=== PATIENT | male | born 1945 | race Caucasian/White ===

== ENCOUNTER 2017-03-16 22:30 | Inpatient (IN) | payer OTHER ==
[~2017-03-16] VITALS: Ht 182.9 cm; Wt 97.0 kg
[2017-03-16 23:08] LABS: EOSINOPHIL (%) 1.2 % (0-5); EOSINOPHIL COUNT 0.1 K/uL (0-0.3); HEMATOCRIT 33.2 % (38.0-50.0); IMMATURE GRANULOCYTE COUNT 0.1 K/uL; INSTRUMENT ABS NEUTROPHIL CT 6.9 K/uL; LYMPHOCYTE COUNT 1.1 K/uL (1.0-2.8); MCH 28.6 PG (29.0-34.0); MCHC 31.6 G/DL (30.0-36.0); MCV 90.5 FL (86-99); MONOCYTE (%) 7.7 % (3-12); MONOCYTE COUNT 0.7 K/uL (0-0.8); NEUTROPHIL (%) 77.6 % (45-76); NEUTROPHIL COUNT 6.9 K/uL (1.8-6.4); PLATELET COUNT 203 K/uL (156-360); RBC DIS.WIDTH-CV 16.7 % (11.8-14.6); RBC DIS.WIDTH-SD 55.9 % (39-53); RED BLOOD COUNT 3.67 M/uL (4.00-5.50); WHITE BLOOD COUNT 8.8 K/uL (4.1-10.2)
[2017-03-16 23:17] LABS: CHLORIDE 97 mEq/L (99-109); POTASSIUM 4.3 mEq/L (3.7-5.4); SODIUM 134 mEq/L (136-147)
[2017-03-16 23:18] LABS: MAGNESIUM 1.9 mg/dL (1.3-2.7)
[2017-03-16 23:20] LABS: GLUCOSE 244 mg/dL (70-99)
[2017-03-16 23:21] LABS: ANION GAP 15 MEQ/L (2-14)
[2017-03-16 23:22] LABS: TOTAL BILIRUBIN 0.4 mg/dL (0.0-1.0)
[2017-03-16 23:23] LABS: ALKALINE PHOSPHATASE 75 IU/L (3-129)
[2017-03-16 23:24] LABS: GFR ESTIMATE (CALCULATED) 53 mL/min/
[2017-03-16 23:25] LABS: UREA NITROGEN (BUN) 27 mg/dL (9-23)
[2017-03-16 23:30] LABS: TROP-I INTERPRETATION POSITIVE
[2017-03-16 23:34] LABS: TROPONIN-I 0.63 ng/mL (0.0-0.30)
[2017-03-16 23:43] LABS: INTER. NORMALIZED RATIO 1.4; PROTHROMBIN TIME 15.1 SEC (10.2-12.9)
[2017-03-16 23:45] LABS: PTT 31.6 SEC (25-37)
[2017-03-17] VITALS (25 sets, daily range): BP systolic 0–143; BP diastolic 0–92
[2017-03-17 03:08] LABS: METH RESISTANT S AUREUS PCR NEGATIVE (NEGATIVE)
[2017-03-17 03:09] LABS: PROBE CHECK PASS; SPECIMEN PROCESSING CONTROL PASS
[2017-03-17 06:04] LABS: BASE EXCESS 5.5 mEq/L (-3 to +3); BICARBONATE 28.9 mEq/L (22-26); CARBOXY HGB 1.9 % (0-5); METHEMOGLOBIN 1.3 % (0-1.5); PCO2 37 mm Hg (35-45); PO2 72 mm Hg (80-100)
[2017-03-17 06:06] LABS: COMMENTS - BLOOD GASES A+C+; SITE LR
[2017-03-17 06:07] LABS: DEVICE MASKVENT; FI02 40 %; MODE SPONT; PEEP 5 CM/H20; PRES. SUPPORT 12 CM/H2O; TOTAL RESP RATE 30 resp/min
[2017-03-17 06:29] LABS: TROP-I INTERPRETATION POSITIVE; TROPONIN-I 4.19 ng/mL (0.0-0.30)
[2017-03-17 11:02] LABS: TROP-I INTERPRETATION POSITIVE; TROPONIN-I 6.57 ng/mL (0.0-0.30)
[2017-03-17 17:59] LABS: TROP-I INTERPRETATION POSITIVE; TROPONIN-I 5.82 ng/mL (0.0-0.30)
[2017-03-18] VITALS (24 sets, daily range): BP systolic 84–126; BP diastolic 56–85
[2017-03-18 05:53] LABS: EOSINOPHIL COUNT 0.1 K/uL (0-0.3); HEMATOCRIT 31.1 % (38.0-50.0); IMMATURE GRANULOCYTE (%) 0.8 % (0.0-0.7); IMMATURE GRANULOCYTE COUNT 0.1 K/uL; INSTRUMENT ABS NEUTROPHIL CT 5.3 K/uL; LYMPHOCYTE COUNT 1.1 K/uL (1.0-2.8); MCH 28.8 PG (29.0-34.0); MCHC 32.2 G/DL (30.0-36.0); MCV 89.6 FL (86-99); MONOCYTE (%) 10.1 % (3-12); MONOCYTE COUNT 0.7 K/uL (0-0.8); NEUTROPHIL (%) 73.2 % (45-76); NEUTROPHIL COUNT 5.3 K/uL (1.8-6.4); PLATELET COUNT 185 K/uL (156-360); RBC DIS.WIDTH-CV 17.1 % (11.8-14.6); RBC DIS.WIDTH-SD 55.4 % (39-53); RED BLOOD COUNT 3.47 M/uL (4.00-5.50); WHITE BLOOD COUNT 7.3 K/uL (4.1-10.2)
[2017-03-18 06:26] LABS: ALKALINE PHOSPHATASE 56 IU/L (3-129); ANION GAP 12 MEQ/L (2-14); CHLORIDE 97 MEQ/L (99-109); GFR ESTIMATE (CALCULATED) > 59 mL/min/; GLUCOSE 143 mg/dL (70-99); MAGNESIUM 1.9 mg/dl (1.3-2.7); POTASSIUM 4.4 MEQ/L (3.7-5.4); SAMPLE HEMOLYSIS CHECK 0; SAMPLE ICTERIC CHECK 0; SAMPLE LIPEMIA CHECK 0; SODIUM 137 MEQ/L (136-147); TOTAL BILIRUBIN 0.5 MG/DL (0.0-1.0); UREA NITROGEN (BUN) 36 mg/dL (9-23)
[2017-03-18] MEDS ORDERED: CETIRIZINE HCL10 M2 PO (12:02)
[2017-03-18] MEDS ORDERED: DOXYCYCLINE HY100 MG PO (12:03)
[2017-03-18] MEDS ORDERED: ASPIR-LOW81 MG PO (12:05)
[2017-03-18] MEDS ORDERED: XARELTO20 MG PO (12:05)
[2017-03-18] MEDS ORDERED: DIAZEPAM5 MG PO (12:06)
[2017-03-18] MEDS ORDERED: DIVALPROEX SOD500 MG PO (12:07)
[2017-03-18] MEDS ORDERED: QUETIAPINE FUMA50 MG PO (12:08)
[2017-03-18] MEDS ORDERED: GABAPENTIN400 MG PO (12:08)
[2017-03-18] MEDS ORDERED: PRAZOSIN HCL5 MG PO (12:09)
[2017-03-18] MEDS ORDERED: METOPROLOL TART25 MG PO (12:09)
[2017-03-18] MEDS ORDERED: ROSUVASTATIN CA40 MG PO (12:10)
[2017-03-18] MEDS ORDERED: NORVASC5 MG PO (12:10)
[2017-03-18] MEDS ORDERED: FUROSEMIDE40 MG PO (12:11)
[2017-03-18] MEDS ORDERED: LIDODERM 5% P1 PATCH TD (12:12)
[2017-03-18] MEDS ORDERED: SPIRONOLACTONE25 MG PO (12:12)
[2017-03-18] MEDS ORDERED: LOSARTAN POTAS100 MG PO (12:12)
[2017-03-18] MEDS ORDERED: OMEPRAZOLE20 MG PO (12:13)
[2017-03-18] MEDS ORDERED: SANTYL30 GM TP (12:13)
[2017-03-18] MEDS ORDERED: GLIPIZIDE5 MG PO (12:14)
[2017-03-18] MEDS ORDERED: VENTOLIN HFA18 GM IH (12:14)
[2017-03-18] MEDS ORDERED: MAGNESIUM400 M1 PO (12:15)
[2017-03-18] MEDS ORDERED: TRAMADOL HCL50 MG PO (12:17)
[2017-03-18] MEDS ORDERED: LASIX40 MG PO (12:52)
[2017-03-18 16:45] LABS: POINT-OF-CARE METER ID UU13113748
[2017-03-19] VITALS (21 sets, daily range): BP systolic 89–117; BP diastolic 52–82
[2017-03-19 03:36] LABS: HEMATOCRIT 29.4 % (38.0-50.0); MCH 28.7 PG (29.0-34.0); PLATELET COUNT 173 K/uL (156-360); RBC DIS.WIDTH-CV 16.5 % (11.8-14.6); RBC DIS.WIDTH-SD 52.7 % (39-53); RED BLOOD COUNT 3.38 M/uL (4.00-5.50); WHITE BLOOD COUNT 8.1 K/uL (4.1-10.2)
[2017-03-19 08:11] LABS: ALKALINE PHOSPHATASE 48 IU/L (3-129); ANION GAP 8 MEQ/L (2-14); CHLORIDE 95 MEQ/L (99-109); GFR ESTIMATE (CALCULATED) > 59 mL/min/; GLUCOSE 139 mg/dL (70-99); MAGNESIUM 1.9 mg/dl (1.3-2.7); POTASSIUM 3.9 MEQ/L (3.7-5.4); SAMPLE HEMOLYSIS CHECK 0; SAMPLE ICTERIC CHECK 0; SAMPLE LIPEMIA CHECK 0; SODIUM 133 MEQ/L (136-147); TOTAL BILIRUBIN 0.5 MG/DL (0.0-1.0); UREA NITROGEN (BUN) 39 mg/dL (9-23)
[2017-03-19 08:39] LABS: POINT-OF-CARE METER ID UU13113748
[2017-03-19 13:17] LABS: POINT-OF-CARE METER ID UU14174217
[2017-03-19 16:57] LABS: POINT-OF-CARE METER ID UU14174217
[2017-03-19 22:40] LABS: POINT-OF-CARE METER ID UU14174217; POINT-OF-CARE USER ID PHATLC
[2017-03-20] VITALS (18 sets, daily range): BP systolic 90–125; BP diastolic 58–80
[2017-03-20 04:53] LABS: EOSINOPHIL (%) 4.1 % (0-5); EOSINOPHIL COUNT 0.3 K/uL (0-0.3); HEMATOCRIT 31.2 % (38.0-50.0); IMMATURE GRANULOCYTE COUNT 0.1 K/uL; INSTRUMENT ABS NEUTROPHIL CT 4.5 K/uL; LYMPHOCYTE COUNT 1.1 K/uL (1.0-2.8); MCH 28.3 PG (29.0-34.0); MCHC 32.7 G/DL (30.0-36.0); MCV 86.7 FL (86-99); MEAN PLAT.VOLUME 11.3 uM^3 (9.0-12.4); MONOCYTE (%) 11.8 % (3-12); MONOCYTE COUNT 0.8 K/uL (0-0.8); NEUTROPHIL (%) 65.7 % (45-76); NEUTROPHIL COUNT 4.5 K/uL (1.8-6.4); NRBC (%) 0.3 /100 WBC (0-0); PLATELET COUNT 203 K/uL (156-360); RBC DIS.WIDTH-CV 16.2 % (11.8-14.6); RBC DIS.WIDTH-SD 51.2 % (39-53); WHITE BLOOD COUNT 6.8 K/uL (4.1-10.2)
[2017-03-20 05:08] LABS: CHLORIDE 91 mEq/L (99-109); POTASSIUM 3.6 mEq/L (3.7-5.4); SODIUM 133 mEq/L (136-147)
[2017-03-20 05:10] LABS: GLUCOSE 115 mg/dL (70-99)
[2017-03-20 05:12] LABS: ANION GAP 11 MEQ/L (2-14)
[2017-03-20 05:14] LABS: GFR ESTIMATE (CALCULATED) > 59 mL/min/
[2017-03-20 05:15] LABS: UREA NITROGEN (BUN) 31 mg/dL (9-23)
[2017-03-20 05:26] LABS: MAGNESIUM 2.3 mg/dL (1.3-2.7)
[2017-03-20 08:01] LABS: POINT-OF-CARE METER ID UU14174217
[2017-03-20 11:33] LABS: POINT-OF-CARE METER ID UU14174217
[2017-03-20 16:54] LABS: POINT-OF-CARE METER ID UU14174217
[2017-03-20 22:10] LABS: POINT-OF-CARE METER ID UU14174217; POINT-OF-CARE USER ID PHATLC
[2017-03-21] VITALS (12 sets, daily range): BP systolic 89–119; BP diastolic 53–74
[2017-03-21 05:40] LABS: BASOPHIL COUNT 0.1 K/uL (0-0.1); EOSINOPHIL (%) 4.6 % (0-5); EOSINOPHIL COUNT 0.3 K/uL (0-0.3); HEMATOCRIT 33.8 % (38.0-50.0); IMMATURE GRANULOCYTE (%) 1.3 % (0.0-0.7); IMMATURE GRANULOCYTE COUNT 0.1 K/uL; LYMPHOCYTE COUNT 1.4 K/uL (1.0-2.8); MCH 28.4 PG (29.0-34.0); MCHC 33.1 G/DL (30.0-36.0); MCV 85.8 FL (86-99); MEAN PLAT.VOLUME 11.1 uM^3 (9.0-12.4); MONOCYTE (%) 12.3 % (3-12); MONOCYTE COUNT 0.8 K/uL (0-0.8); NEUTROPHIL (%) 60.5 % (45-76); PLATELET COUNT 239 K/uL (156-360); RBC DIS.WIDTH-CV 15.9 % (11.8-14.6); RBC DIS.WIDTH-SD 50.1 % (39-53); RED BLOOD COUNT 3.94 M/uL (4.00-5.50); WHITE BLOOD COUNT 6.7 K/uL (4.1-10.2)
[2017-03-21 06:04] LABS: ANION GAP 12 MEQ/L (2-14); CHLORIDE 87 MEQ/L (99-109); GFR ESTIMATE (CALCULATED) > 59 mL/min/; GLUCOSE 105 mg/dL (70-99); MAGNESIUM 2.1 mg/dl (1.3-2.7); POTASSIUM 3.8 MEQ/L (3.7-5.4); SAMPLE HEMOLYSIS CHECK 0; SAMPLE ICTERIC CHECK 0; SAMPLE LIPEMIA CHECK 0; SODIUM 133 MEQ/L (136-147); UREA NITROGEN (BUN) 33 mg/dL (9-23)
[2017-03-21 08:48] LABS: POINT-OF-CARE METER ID UU13113731
[2017-03-21 12:30] LABS: POINT-OF-CARE METER ID UU13113731
[2017-03-21 17:26] LABS: POINT-OF-CARE METER ID UU13113731
[2017-03-21 21:31] LABS: POINT-OF-CARE METER ID UU13113781
[2017-03-22 04:33] VITALS: BP 104/59
[2017-03-22 06:13] LABS: BASOPHIL COUNT 0.1 K/uL (0-0.1); EOSINOPHIL COUNT 0.3 K/uL (0-0.3); HEMATOCRIT 35.5 % (38.0-50.0); IMMATURE GRANULOCYTE (%) 1.5 % (0.0-0.7); IMMATURE GRANULOCYTE COUNT 0.1 K/uL; INSTRUMENT ABS NEUTROPHIL CT 3.8 K/uL; LYMPHOCYTE COUNT 1.5 K/uL (1.0-2.8); MCH 28.2 PG (29.0-34.0); MCHC 33.2 G/DL (30.0-36.0); MCV 84.9 FL (86-99); MEAN PLAT.VOLUME 11.1 uM^3 (9.0-12.4); MONOCYTE (%) 12.4 % (3-12); MONOCYTE COUNT 0.8 K/uL (0-0.8); NEUTROPHIL (%) 57.4 % (45-76); NEUTROPHIL COUNT 3.8 K/uL (1.8-6.4); PLATELET COUNT 249 K/uL (156-360); RBC DIS.WIDTH-CV 15.7 % (11.8-14.6); RBC DIS.WIDTH-SD 48.2 % (39-53); RED BLOOD COUNT 4.18 M/uL (4.00-5.50); WHITE BLOOD COUNT 6.6 K/uL (4.1-10.2)
[2017-03-22 06:34] LABS: ANION GAP 12 MEQ/L (2-14); CHLORIDE 87 MEQ/L (99-109); GFR ESTIMATE (CALCULATED) > 59 mL/min/; GLUCOSE 97 mg/dL (70-99); MAGNESIUM 1.9 mg/dl (1.3-2.7); POTASSIUM 3.9 MEQ/L (3.7-5.4); SAMPLE HEMOLYSIS CHECK 0; SAMPLE ICTERIC CHECK 0; SAMPLE LIPEMIA CHECK 0; SODIUM 131 MEQ/L (136-147); UREA NITROGEN (BUN) 38 mg/dL (9-23)
[2017-03-22 07:38] LABS: POINT-OF-CARE METER ID UU13113781
[2017-03-22 08:00] VITALS: BP 97/57
[2017-03-22 12:37] VITALS: BP 90/51
[2017-03-22] MEDS ORDERED: ENALAPRIL MALEAT5 MG PO (14:07)
[2017-03-22] MEDS ORDERED: METOPROLOL TART75 MG PO (14:07)
[2017-03-22] MEDS ORDERED: ASPIR-LOW81 MG PO (14:08)
[2017-03-22] MEDS ORDERED: GABAPENTIN300 MG PO (14:08)
== END 2017-03-22 15:54 | disposition home or self-care (01) | DRG 280 ==
LOC: EME → EDBD 22:30 → EME 22:30 → ENRESERV 03-17 01:05 → 4EAST 03-17 01:05 → EDOF 03-17 01:05 → 4WEST 03-17 01:05 → ENRESERV 03-17 01:07 → 4WEST 03-17 01:33 → ENRESERV 03-21 09:52 → 4EAST 03-21 17:12
PROVIDERS: Emergency Medicine; Internal Medicine; Internal Medicine Critical Care Medicine; Internal Medicine Nephrology; Specialist
PROC: 5A09357 Assistance with Respiratory Ventilation, Less than 24 Consecutive Hours, Continuous Positive Airway Pressure (ICD-10-PCS; principal; 2017-03-17)
DX: I21.4 Non-ST elevation (NSTEMI) myocardial infarction (principal); J96.01 Acute respiratory failure with hypoxia; J44.1 Chronic obstructive pulmonary disease with (acute) exacerbation; I48.91 Unspecified atrial fibrillation; I95.9 Hypotension, unspecified; I25.10 Atherosclerotic heart disease of native coronary artery without angina pectoris; I44.7 Left bundle-branch block, unspecified; I50.23 Acute on chronic systolic (congestive) heart failure; I11.0 Hypertensive heart disease with heart failure; E78.5 Hyperlipidemia, unspecified; E11.621 Type 2 diabetes mellitus with foot ulcer; F17.210 Nicotine dependence, cigarettes, uncomplicated; L97.929 Non-pressure chronic ulcer of unspecified part of left lower leg with unspecified severity; E83.42 Hypomagnesemia; I73.9 Peripheral vascular disease, unspecified; E11.9 Type 2 diabetes mellitus without complications; R91.8 Other nonspecific abnormal finding of lung field; F43.10 Post-traumatic stress disorder, unspecified; E78.00 Pure hypercholesterolemia, unspecified; K21.9 Gastro-esophageal reflux disease without esophagitis; F32.9 Major depressive disorder, single episode, unspecified; I42.9 Cardiomyopathy, unspecified; R79.89 Other specified abnormal findings of blood chemistry; Z82.49 Family history of ischemic heart disease and other diseases of the circulatory system; I25.2 Old myocardial infarction; Z95.810 Presence of automatic (implantable) cardiac defibrillator; Z80.1 Family history of malignant neoplasm of trachea, bronchus and lung; Z79.01 Long term (current) use of anticoagulants; Z88.6 Allergy status to analgesic agent
CPT/HCPCS: 36600; 71010; 80048; 80053; 82803; 82948; 83735; 83880; 84100; 84484; 85025; 85027; 85610; 85730; 87641; 93005; 93306; 94002; 94003; 94640; 94640 76; 94760; 94799; 99202; 99281; 99285; J1815; J1940; J3475; J7050; J7644

== ENCOUNTER 2017-03-30 20:41 | Inpatient (IN) | payer OTHER ==
[~2017-03-30] VITALS: Ht 185.4 cm; Wt 100.4 kg
[~2017-03-30 20:41] MED LIST: ASPIR-LOW81 MG PO; CETIRIZINE HCL10 M2 PO; DIAZEPAM5 MG PO; DIVALPROEX SOD500 MG PO; DOXYCYCLINE HY100 MG PO; ENALAPRIL MALEAT5 MG PO; FUROSEMIDE40 MG PO; GABAPENTIN300 MG PO; GABAPENTIN400 MG PO; GLIPIZIDE5 MG PO; LASIX40 MG PO; LIDODERM 5% P1 PATCH TD; LOSARTAN POTAS100 MG PO; MAGNESIUM400 M1 PO; METOPROLOL TART25 MG PO; METOPROLOL TART75 MG PO; NORVASC5 MG PO; OMEPRAZOLE20 MG PO; PRAZOSIN HCL5 MG PO; QUETIAPINE FUMA50 MG PO; ROSUVASTATIN CA40 MG PO; SANTYL30 GM TP; SPIRONOLACTONE25 MG PO; TRAMADOL HCL50 MG PO; VENTOLIN HFA18 GM IH; XARELTO20 MG PO
[2017-03-30 20:56] LABS: HEMATOCRIT 31.8 % (38.0-50.0); MCH 28.5 PG (29.0-34.0); MCHC 32.4 G/DL (30.0-36.0); MCV 87.8 FL (86-99); MEAN PLAT.VOLUME 11.8 uM^3 (9.0-12.4); PLATELET COUNT 189 K/uL (156-360); RBC DIS.WIDTH-SD 51.8 % (39-53); RED BLOOD COUNT 3.62 M/uL (4.00-5.50); WHITE BLOOD COUNT 10.5 K/uL (4.1-10.2)
[2017-03-30 21:08] LABS: CHLORIDE 94 mEq/L (99-109); POTASSIUM 5.8 mEq/L (3.7-5.4)
[2017-03-30 21:09] LABS: SODIUM 131 mEq/L (136-147)
[2017-03-30 21:10] LABS: GLUCOSE 220 mg/dL (70-99)
[2017-03-30 21:12] LABS: ANION GAP 17 MEQ/L (2-14)
[2017-03-30 21:14] LABS: GFR ESTIMATE (CALCULATED) 43 mL/min/
[2017-03-30 21:15] LABS: UREA NITROGEN (BUN) 43 mg/dL (9-23)
[2017-03-30 21:18] LABS: TROP-I INTERPRETATION POSITIVE
[2017-03-30 21:25] LABS: TROPONIN-I 5.86 ng/mL (0.0-0.30)
[2017-03-30 21:37] LABS: INTER. NORMALIZED RATIO 1.5; PROTHROMBIN TIME 16.4 SEC (10.2-12.9)
[2017-03-30 22:00] LABS: PTT 30.7 SEC (25-37)
[2017-03-31] VITALS (22 sets, daily range): BP systolic 88–123; BP diastolic 56–85
[2017-03-31 04:10] LABS: METH RESISTANT S AUREUS PCR NEGATIVE (NEGATIVE)
[2017-03-31 04:14] LABS: PROBE CHECK PASS; SPECIMEN PROCESSING CONTROL PASS
[2017-03-31 05:24] LABS: INTER. NORMALIZED RATIO 1.4; PROTHROMBIN TIME 15.6 SEC (10.2-12.9)
[2017-03-31 05:27] LABS: PTT 44.5 SEC (25-37)
[2017-03-31 05:49] LABS: TROP-I INTERPRETATION POSITIVE; TROPONIN-I 10.39 ng/mL (0.0-0.30)
[2017-03-31 08:42] LABS: POINT-OF-CARE METER ID UU13113803
[2017-03-31 12:13] LABS: POINT-OF-CARE METER ID UU13113731; POINT-OF-CARE USER ID 606021424
[2017-03-31 13:25] LABS: TROP-I INTERPRETATION POSITIVE; TROPONIN-I 10.49 ng/mL (0.0-0.30)
[2017-03-31 15:31] LABS: POINT-OF-CARE METER ID UU13113731; POINT-OF-CARE USER ID 606021424
[2017-03-31 19:38] LABS: ANION GAP 12 MEQ/L (2-14); CHLORIDE 94 MEQ/L (99-109); GFR ESTIMATE (CALCULATED) 53 mL/min/; GLUCOSE 148 mg/dL (70-99); SAMPLE HEMOLYSIS CHECK 0; SAMPLE ICTERIC CHECK 0; SAMPLE LIPEMIA CHECK 0; SODIUM 131 MEQ/L (136-147); UREA NITROGEN (BUN) 44 mg/dL (9-23)
[2017-03-31 19:43] LABS: TROP-I INTERPRETATION POSITIVE; TROPONIN-I 10.44 ng/mL (0.0-0.30)
[2017-03-31 19:59] LABS: POTASSIUM 4.3 MEQ/L (3.7-5.4)
[2017-03-31 22:21] LABS: POINT-OF-CARE METER ID UU13113731
[2017-04-01] VITALS (10 sets, daily range): BP systolic 81–108; BP diastolic 51–70
[2017-04-01 05:30] LABS: BASE EXCESS 4.1 mEq/L (-3 to +3); BICARBONATE 28.5 mEq/L (22-26); CARBOXY HGB 1.2 % (0-5); COMMENTS - BLOOD GASES A+C+; DEVICE HI FLOW NC; METHEMOGLOBIN 1.5 % (0-1.5); O2 FLOW 10 L/MIN; PCO2 41 mm Hg (35-45); PO2 173 mm Hg (80-100); SITE RR; pH 7.45 (7.35-7.45)
[2017-04-01 07:57] LABS: ANION GAP 9 MEQ/L (2-14); CHLORIDE 92 MEQ/L (99-109); GFR ESTIMATE (CALCULATED) 58 mL/min/; GLUCOSE 130 mg/dL (70-99); POTASSIUM 4.3 MEQ/L (3.7-5.4); SAMPLE HEMOLYSIS CHECK 0; SAMPLE ICTERIC CHECK 0; SAMPLE LIPEMIA CHECK 0; SODIUM 130 MEQ/L (136-147); UREA NITROGEN (BUN) 40 mg/dL (9-23)
[2017-04-01 08:00] LABS: TROP-I INTERPRETATION POSITIVE; TROPONIN-I 8.42 ng/mL (0.0-0.30)
[2017-04-01] MEDS ORDERED: VASOTEC5 MG PO (09:25)
[2017-04-01] MEDS ORDERED: LO-DOSE ASPIRIN81 M1 PO (09:25)
[2017-04-01] MEDS ORDERED: GABAPENTIN300 MG PO (09:25)
[2017-04-01] MEDS ORDERED: CETIRIZINE HCL10 M2 PO (09:25)
[2017-04-01] MEDS ORDERED: DIAZEPAM5 MG PO (09:26)
[2017-04-01] MEDS ORDERED: XARELTO20 MG PO (09:26)
[2017-04-01] MEDS ORDERED: SEROQUEL50 MG PO (09:27)
[2017-04-01] MEDS ORDERED: MINIPRESS5 MG PO (09:27)
[2017-04-01] MEDS ORDERED: CRESTOR40 MG PO (09:27)
[2017-04-01] MEDS ORDERED: DEPAKOTE500 MG PO (09:27)
[2017-04-01] MEDS ORDERED: LIDODERM 5% P1 PATCH TD (09:28)
[2017-04-01] MEDS ORDERED: FUROSEMIDE40 MG PO (09:28)
[2017-04-01] MEDS ORDERED: SPIRONOLACTONE25 MG PO (09:28)
[2017-04-01] MEDS ORDERED: GLIPIZIDE5 MG PO (09:29)
[2017-04-01] MEDS ORDERED: SANTYL30 GM TP (09:29)
[2017-04-01] MEDS ORDERED: PRILOSEC20 MG PO (09:29)
[2017-04-01] MEDS ORDERED: VENTOLIN HFA18 GM IH (09:30)
[2017-04-01] MEDS ORDERED: LASIX40 MG PO (09:31)
[2017-04-01] MEDS ORDERED: MAGNESIUM OXID400 MG PO (09:31)
[2017-04-01 11:47] LABS: POINT-OF-CARE METER ID UU13113731
[2017-04-01 13:26] LABS: BASOPHIL COUNT 0.1 K/uL (0-0.1); EOSINOPHIL (%) 1.7 % (0-5); EOSINOPHIL COUNT 0.1 K/uL (0-0.3); HEMATOCRIT 29.4 % (38.0-50.0); IMMATURE GRANULOCYTE (%) 1.7 % (0.0-0.7); IMMATURE GRANULOCYTE COUNT 0.1 K/uL; INSTRUMENT ABS NEUTROPHIL CT 5.3 K/uL; LYMPHOCYTE COUNT 1.1 K/uL (1.0-2.8); MCH 29.7 PG (29.0-34.0); MCHC 33.7 G/DL (30.0-36.0); MCV 88.3 FL (86-99); MONOCYTE (%) 7.6 % (3-12); MONOCYTE COUNT 0.6 K/uL (0-0.8); NEUTROPHIL (%) 73.7 % (45-76); NEUTROPHIL COUNT 5.3 K/uL (1.8-6.4); PLATELET COUNT 156 K/uL (156-360); RBC DIS.WIDTH-CV 15.9 % (11.8-14.6); RBC DIS.WIDTH-SD 51.5 % (39-53); RED BLOOD COUNT 3.33 M/uL (4.00-5.50); WHITE BLOOD COUNT 7.2 K/uL (4.1-10.2)
[2017-04-01 14:06] LABS: ANION GAP 11 MEQ/L (2-14); CHLORIDE 91 MEQ/L (99-109); GFR ESTIMATE (CALCULATED) > 59 mL/min/; GLUCOSE 110 mg/dL (70-99); MAGNESIUM 1.7 mg/dl (1.3-2.7); POTASSIUM 4.5 MEQ/L (3.7-5.4); SAMPLE HEMOLYSIS CHECK 1; SAMPLE ICTERIC CHECK 0; SAMPLE LIPEMIA CHECK 0; SODIUM 128 MEQ/L (136-147); UREA NITROGEN (BUN) 40 mg/dL (9-23)
[2017-04-01 16:02] LABS: POINT-OF-CARE METER ID UU13113748
== END 2017-04-01 17:39 | disposition short-term general hospital (02) | DRG 280 ==
LOC: EME 20:41 → EDOF 03-31 00:17 → ENRESERV 03-31 00:18 → 4WEST 03-31 02:25
PROVIDERS: Emergency Medicine; Internal Medicine Cardiovascular Disease; Internal Medicine Pulmonary Disease; Specialist
DX: I21.4 Non-ST elevation (NSTEMI) myocardial infarction (principal); J96.01 Acute respiratory failure with hypoxia; I50.23 Acute on chronic systolic (congestive) heart failure; Z95.0 Presence of cardiac pacemaker; I25.5 Ischemic cardiomyopathy; E78.5 Hyperlipidemia, unspecified; E11.40 Type 2 diabetes mellitus with diabetic neuropathy, unspecified; E11.65 Type 2 diabetes mellitus with hyperglycemia; E87.5 Hyperkalemia; Z95.1 Presence of aortocoronary bypass graft; Z95.5 Presence of coronary angioplasty implant and graft; I48.91 Unspecified atrial fibrillation; I11.0 Hypertensive heart disease with heart failure; I25.10 Atherosclerotic heart disease of native coronary artery without angina pectoris; J44.9 Chronic obstructive pulmonary disease, unspecified; F17.200 Nicotine dependence, unspecified, uncomplicated; I25.2 Old myocardial infarction; N17.9 Acute kidney failure, unspecified; L97.929 Non-pressure chronic ulcer of unspecified part of left lower leg with unspecified severity; I27.2 Other secondary pulmonary hypertension; I08.1 Rheumatic disorders of both mitral and tricuspid valves; E86.0 Dehydration; K21.9 Gastro-esophageal reflux disease without esophagitis
CPT/HCPCS: 36600; 71010; 71020; 80048; 80048 91; 82803; 82948; 83735; 83880; 84100; 84484; 85025; 85027; 85610; 85730; 87641; 93005; 94002; 94799; 99202; 99281; 99285; J1815; J1940; J2405; J7030

== ENCOUNTER 2017-04-22 21:27 | Inpatient (IN) | payer OTHER ==
[~2017-04-22] VITALS: Ht 185.4 cm; Wt 103.9 kg
[~2017-04-22 21:27] MED LIST changes: +CRESTOR40 MG PO; +DEPAKOTE500 MG PO; +LO-DOSE ASPIRIN81 M1 PO; +MAGNESIUM OXID400 MG PO; +MINIPRESS5 MG PO; +PRILOSEC20 MG PO; +SEROQUEL50 MG PO; +VASOTEC5 MG PO
[2017-04-22 22:01] LABS: HEMATOCRIT 29.3 % (38.0-50.0); MCH 28.1 PG (29.0-34.0); MCHC 32.4 G/DL (30.0-36.0); MCV 86.7 FL (86-99); PLATELET COUNT 185 K/uL (156-360); RBC DIS.WIDTH-CV 16.8 % (11.8-14.6); RBC DIS.WIDTH-SD 53.4 % (39-53); RED BLOOD COUNT 3.38 M/uL (4.00-5.50); WHITE BLOOD COUNT 6.9 K/uL (4.1-10.2)
[2017-04-22 23:14] LABS: CHLORIDE 94 mEq/L (99-109); POTASSIUM 4.4 mEq/L (3.7-5.4); SODIUM 132 mEq/L (136-147)
[2017-04-22 23:16] LABS: GLUCOSE 92 mg/dL (70-99)
[2017-04-22 23:17] LABS: ANION GAP 14 MEQ/L (2-14)
[2017-04-22 23:19] LABS: GFR ESTIMATE (CALCULATED) 53 mL/min/
[2017-04-22 23:20] LABS: TROP-I INTERPRETATION NEGATIVE; TROPONIN-I 0.08 ng/mL (0.0-0.30); UREA NITROGEN (BUN) 46 mg/dL (9-23)
[2017-04-22] MEDS ORDERED: [UNRECOGNIZED DRUG - REMARK] (23:58)
[2017-04-23] VITALS (24 sets, daily range): BP systolic 99–135; BP diastolic 65–88
[2017-04-23 01:59] LABS: INTER. NORMALIZED RATIO 1.5; PROTHROMBIN TIME 16.6 SEC (10.2-12.9)
[2017-04-23 02:01] LABS: PTT 35.9 SEC (25-37)
[2017-04-23 02:47] LABS: ADD MIUA? YES; BILIRUBIN NEGATIVE; BLOOD SMALL; COLOR STRAW ((YELLOW)); GLUCOSE (STRIP) NEGATIVE; KETONES NEGATIVE; LEUKOCYTES NEGATIVE; NITRITE NEGATIVE; PROTEIN (STRIP) NEGATIVE; SPECIFIC GRAVITY 1.006 (1.000-1.030); UROBILINOGEN 0.2 MG/DL (0.2-1.0)
[2017-04-23 02:52] LABS: INTER. NORMALIZED RATIO 1.5; PROTHROMBIN TIME 16.3 SEC (10.2-12.9)
[2017-04-23 02:55] LABS: PTT 34.4 SEC (25-37)
[2017-04-23 03:02] LABS: BACTERIA NONE SEEN /HPF; EPITHELIAL CELLS NONE SEEN /HPF; MUCUS TRACE /LPF; RED BLOOD CELLS NONE SEEN /HPF (0-5); UCUL ADDED? NO; WHITE BLOOD CELLS NONE SEEN /HPF (0-5)
[2017-04-23 03:04] LABS: METH RESISTANT S AUREUS PCR NEGATIVE (NEGATIVE)
[2017-04-23 03:19] LABS: PROBE CHECK PASS; SPECIMEN PROCESSING CONTROL PASS
[2017-04-23 05:55] LABS: BASOPHIL COUNT 0.1 K/uL (0-0.1); EOSINOPHIL (%) 1.7 % (0-5); EOSINOPHIL COUNT 0.1 K/uL (0-0.3); HEMATOCRIT 29.3 % (38.0-50.0); IMMATURE GRANULOCYTE (%) 1.5 % (0.0-0.7); IMMATURE GRANULOCYTE COUNT 0.1 K/uL; INSTRUMENT ABS NEUTROPHIL CT 5.4 K/uL; LYMPHOCYTE COUNT 1.1 K/uL (1.0-2.8); MCH 27.4 PG (29.0-34.0); MCHC 31.4 G/DL (30.0-36.0); MCV 87.2 FL (86-99); MEAN PLAT.VOLUME 11.2 uM^3 (9.0-12.4); MONOCYTE COUNT 0.7 K/uL (0-0.8); NEUTROPHIL (%) 72.3 % (45-76); NEUTROPHIL COUNT 5.4 K/uL (1.8-6.4); PLATELET COUNT 196 K/uL (156-360); RBC DIS.WIDTH-CV 16.8 % (11.8-14.6); RBC DIS.WIDTH-SD 53.2 % (39-53); RED BLOOD COUNT 3.36 M/uL (4.00-5.50); WHITE BLOOD COUNT 7.5 K/uL (4.1-10.2)
[2017-04-23 06:25] LABS: TROP-I INTERPRETATION NEGATIVE; TROPONIN-I 0.18 ng/mL (0.0-0.30)
[2017-04-23 06:39] LABS: ALKALINE PHOSPHATASE 50 IU/L (3-129); ANION GAP 12 MEQ/L (2-14); CHLORIDE 93 MEQ/L (99-109); GFR ESTIMATE (CALCULATED) 53 mL/min/; GLUCOSE 113 mg/dL (70-99); POTASSIUM 4.2 MEQ/L (3.7-5.4); SAMPLE HEMOLYSIS CHECK 0; SAMPLE ICTERIC CHECK 0; SAMPLE LIPEMIA CHECK 0; SODIUM 134 MEQ/L (136-147); TOTAL BILIRUBIN 0.5 MG/DL (0.0-1.0); UREA NITROGEN (BUN) 44 mg/dL (9-23)
[2017-04-23 11:20] LABS: POINT-OF-CARE METER ID UU14162636
[2017-04-23 13:26] LABS: TROP-I INTERPRETATION NEGATIVE; TROPONIN-I 0.12 ng/mL (0.0-0.30)
[2017-04-23] MEDS ORDERED: METOPROLOL SUCC25 MG PO (16:09)
[2017-04-23] MEDS ORDERED: CORDARONE200 MG PO (16:09)
[2017-04-23] MEDS ORDERED: DEMADEX20 MG PO (16:09)
[2017-04-23] MEDS ORDERED: COZAAR25 MG PO (16:09)
[2017-04-23] MEDS ORDERED: PROAIR HFA8.5 GM IH (16:10)
[2017-04-23] MEDS ORDERED: NEURONTIN300 MG PO (16:10)
[2017-04-23] MEDS ORDERED: SANTYL30 GM TP (16:11)
[2017-04-23] MEDS ORDERED: ALL DAY ALLERGY10 M3 PO (16:11)
[2017-04-23] MEDS ORDERED: LO-DOSE ASPIRIN81 M2 PO (16:11)
[2017-04-23] MEDS ORDERED: DEPAKOTE ER500 MG PO ×2 (16:12)
[2017-04-23] MEDS ORDERED: MINIPRESS5 MG PO (16:13)
[2017-04-23] MEDS ORDERED: MAGOX 400400 MG PO (16:13)
[2017-04-23] MEDS ORDERED: GLUCOTROL5 MG PO (16:13)
[2017-04-23] MEDS ORDERED: OMEPRAZOLE20 M2 PO (16:13)
[2017-04-23] MEDS ORDERED: LIDODERM 5% P1 PATCH TD (16:13)
[2017-04-23] MEDS ORDERED: QUETIAPINE FUMA50 MG PO (16:14)
[2017-04-23] MEDS ORDERED: CRESTOR40 MG PO (16:14)
[2017-04-23 18:36] LABS: POINT-OF-CARE METER ID UU14314083
[2017-04-24] VITALS (24 sets, daily range): BP systolic 89–127; BP diastolic 64–89
[2017-04-24 00:28] LABS: POINT-OF-CARE METER ID UU14314083
[2017-04-24 07:23] LABS: POINT-OF-CARE METER ID UU13113731
[2017-04-24 08:40] LABS: HEMATOCRIT 29.2 % (38.0-50.0); MCH 28.7 PG (29.0-34.0); MCHC 32.2 G/DL (30.0-36.0); MCV 89.3 FL (86-99); MEAN PLAT.VOLUME 11.8 uM^3 (9.0-12.4); NRBC (%) 0.3 /100 WBC (0-0); PLATELET COUNT 170 K/uL (156-360); RBC DIS.WIDTH-CV 17.4 % (11.8-14.6); RBC DIS.WIDTH-SD 55.9 % (39-53); RED BLOOD COUNT 3.27 M/uL (4.00-5.50); WHITE BLOOD COUNT 6.8 K/uL (4.1-10.2)
[2017-04-24 09:11] LABS: ANION GAP 12 MEQ/L (2-14); CHLORIDE 95 MEQ/L (99-109); GFR ESTIMATE (CALCULATED) 53 mL/min/; GLUCOSE 114 mg/dL (70-99); POTASSIUM 4.3 MEQ/L (3.7-5.4); SAMPLE HEMOLYSIS CHECK 0; SAMPLE ICTERIC CHECK 0; SAMPLE LIPEMIA CHECK 0; SODIUM 138 MEQ/L (136-147); UREA NITROGEN (BUN) 35 mg/dL (9-23)
[2017-04-24 12:01] LABS: POINT-OF-CARE METER ID UU13113803
[2017-04-24 18:02] LABS: POINT-OF-CARE METER ID UU13113731
[2017-04-25] VITALS (23 sets, daily range): BP systolic 76–111; BP diastolic 44–88
[2017-04-25 00:30] LABS: POINT-OF-CARE METER ID UU13113803
[2017-04-25 04:50] LABS: EOSINOPHIL (%) 2.7 % (0-5); EOSINOPHIL COUNT 0.2 K/uL (0-0.3); IMMATURE GRANULOCYTE (%) 3.6 % (0.0-0.7); IMMATURE GRANULOCYTE COUNT 0.2 K/uL; INSTRUMENT ABS NEUTROPHIL CT 3.7 K/uL; LYMPHOCYTE COUNT 0.9 K/uL (1.0-2.8); MCH 27.9 PG (29.0-34.0); MCHC 31.9 G/DL (30.0-36.0); MCV 87.7 FL (86-99); MEAN PLAT.VOLUME 11.2 uM^3 (9.0-12.4); MONOCYTE (%) 10.7 % (3-12); MONOCYTE COUNT 0.6 K/uL (0-0.8); NEUTROPHIL (%) 66.1 % (45-76); NEUTROPHIL COUNT 3.7 K/uL (1.8-6.4); PLATELET COUNT 157 K/uL (156-360); RBC DIS.WIDTH-CV 16.9 % (11.8-14.6); RBC DIS.WIDTH-SD 53.4 % (39-53); RED BLOOD COUNT 3.08 M/uL (4.00-5.50); WHITE BLOOD COUNT 5.6 K/uL (4.1-10.2)
[2017-04-25 05:24] LABS: ANION GAP 10 MEQ/L (2-14); CHLORIDE 96 MEQ/L (99-109); GFR ESTIMATE (CALCULATED) > 59 mL/min/; GLUCOSE 91 mg/dL (70-99); POTASSIUM 3.8 MEQ/L (3.7-5.4); SAMPLE HEMOLYSIS CHECK 0; SAMPLE ICTERIC CHECK 0; SAMPLE LIPEMIA CHECK 0; SODIUM 138 MEQ/L (136-147); UREA NITROGEN (BUN) 33 mg/dL (9-23)
[2017-04-25 06:18] LABS: POINT-OF-CARE METER ID UU14162636
[2017-04-25 11:57] LABS: POINT-OF-CARE METER ID UU14162636
[2017-04-25 17:17] LABS: POINT-OF-CARE METER ID UU14162636
[2017-04-25 22:13] LABS: POINT-OF-CARE METER ID UU14162636
[2017-04-26] VITALS (8 sets, daily range): BP systolic 93–117; BP diastolic 49–74
[2017-04-26 04:58] LABS: CHLORIDE 95 mEq/L (99-109); POTASSIUM 3.9 mEq/L (3.7-5.4); SODIUM 138 mEq/L (136-147)
[2017-04-26 04:59] LABS: GLUCOSE 88 mg/dL (70-99)
[2017-04-26 05:01] LABS: ANION GAP 10 MEQ/L (2-14)
[2017-04-26 05:03] LABS: GFR ESTIMATE (CALCULATED) > 59 mL/min/
[2017-04-26 05:04] LABS: UREA NITROGEN (BUN) 31 mg/dL (9-23)
[2017-04-26 11:55] LABS: POINT-OF-CARE METER ID UU14174217
[2017-04-26 16:31] LABS: POINT-OF-CARE METER ID UU14174217
[2017-04-26 22:35] LABS: POINT-OF-CARE METER ID UU13113731
[2017-04-27] VITALS (8 sets, daily range): BP systolic 87–126; BP diastolic 55–81
[2017-04-27 05:42] LABS: HEMATOCRIT 29.7 % (38.0-50.0); MCH 27.8 PG (29.0-34.0); MCHC 31.3 G/DL (30.0-36.0); MCV 88.7 FL (86-99); MEAN PLAT.VOLUME 10.7 uM^3 (9.0-12.4); PLATELET COUNT 210 K/uL (156-360); RBC DIS.WIDTH-CV 16.5 % (11.8-14.6); RBC DIS.WIDTH-SD 53.6 % (39-53); RED BLOOD COUNT 3.35 M/uL (4.00-5.50); WHITE BLOOD COUNT 4.8 K/uL (4.1-10.2)
[2017-04-27 05:50] LABS: ANION GAP 10 MEQ/L (2-14); CHLORIDE 93 MEQ/L (99-109); GFR ESTIMATE (CALCULATED) > 59 mL/min/; GLUCOSE 85 mg/dL (70-99); POTASSIUM 3.9 MEQ/L (3.7-5.4); SAMPLE HEMOLYSIS CHECK 0; SAMPLE ICTERIC CHECK 0; SAMPLE LIPEMIA CHECK 0; SODIUM 139 MEQ/L (136-147); UREA NITROGEN (BUN) 28 mg/dL (9-23)
[2017-04-27 08:34] LABS: POINT-OF-CARE METER ID UU13113748
[2017-04-27 21:43] LABS: POINT-OF-CARE METER ID UU14188625
[2017-04-28 04:27] VITALS: BP 109/74
[2017-04-28 06:09] LABS: ANION GAP 10 MEQ/L (2-14); CHLORIDE 95 MEQ/L (99-109); GFR ESTIMATE (CALCULATED) > 59 mL/min/; GLUCOSE 89 mg/dL (70-99); POTASSIUM 4.1 MEQ/L (3.7-5.4); SAMPLE HEMOLYSIS CHECK 0; SAMPLE ICTERIC CHECK 0; SAMPLE LIPEMIA CHECK 0; SODIUM 141 MEQ/L (136-147); UREA NITROGEN (BUN) 27 mg/dL (9-23)
[2017-04-28 07:39] VITALS: BP 132/68
[2017-04-28 08:14] LABS: POINT-OF-CARE METER ID UU13113717
[2017-04-28 09:34] VITALS: BP 00/00
[2017-04-28] MEDS ORDERED: DIGOXIN125 MCG PO (12:25)
[2017-04-28] MEDS ORDERED: TORSEMIDE20 MG PO (12:25)
== END 2017-04-28 13:24 | disposition home or self-care (01) | DRG 208 ==
LOC: EME 21:27 → 4WEST 04-23 00:15 → EDOF 04-23 00:15 → ENRESERV 04-23 00:16 → 4WEST 04-23 01:25 → ENRESERV 04-26 07:05 → CANRESERV 04-26 12:48 → ENRESERV 04-26 13:26 → 5SOUTH 04-27 12:34
PROVIDERS: Emergency Medicine; Hospitalist; Internal Medicine; Internal Medicine Critical Care Medicine; Specialist
PROC: 5A1935Z Respiratory Ventilation, Less than 24 Consecutive Hours (ICD-10-PCS; principal; 2017-04-23)
DX: J96.21 Acute and chronic respiratory failure with hypoxia (principal); I50.23 Acute on chronic systolic (congestive) heart failure; N17.9 Acute kidney failure, unspecified; I13.0 Hypertensive heart and chronic kidney disease with heart failure and stage 1 through stage 4 chronic kidney disease, or unspecified chronic kidney disease; I25.119 Atherosclerotic heart disease of native coronary artery with unspecified angina pectoris; E78.5 Hyperlipidemia, unspecified; I25.5 Ischemic cardiomyopathy; I21.4 Non-ST elevation (NSTEMI) myocardial infarction; R07.9 Chest pain, unspecified; J44.1 Chronic obstructive pulmonary disease with (acute) exacerbation; E11.22 Type 2 diabetes mellitus with diabetic chronic kidney disease; I73.9 Peripheral vascular disease, unspecified; I48.1 Persistent atrial fibrillation; I44.7 Left bundle-branch block, unspecified; E11.622 Type 2 diabetes mellitus with other skin ulcer; L89.529 Pressure ulcer of left ankle, unspecified stage; L89.519 Pressure ulcer of right ankle, unspecified stage; T81.89XA Other complications of procedures, not elsewhere classified, initial encounter; K21.9 Gastro-esophageal reflux disease without esophagitis; M79.605 Pain in left leg; L97.929 Non-pressure chronic ulcer of unspecified part of left lower leg with unspecified severity; I25.2 Old myocardial infarction; Z87.891 Personal history of nicotine dependence; Z95.0 Presence of cardiac pacemaker; Z95.1 Presence of aortocoronary bypass graft; Z95.5 Presence of coronary angioplasty implant and graft; Z79.899 Other long term (current) drug therapy; Z79.82 Long term (current) use of aspirin; Z95.810 Presence of automatic (implantable) cardiac defibrillator; Z82.49 Family history of ischemic heart disease and other diseases of the circulatory system
CPT/HCPCS: 71010; 80048; 80053; 81003; 82948; 83735; 83880; 84100; 84484; 85025; 85027; 85610; 85730; 87641; 93005; 94002; 94003; 94760; 94799; 99281; 99285; J1160; J1815; J1940; J2270; S0028